=== PATIENT | female | born 1985 | race Caucasian/White ===

== ENCOUNTER 2017-07-23 22:53 | Inpatient (IN) | payer OTHER ==
[2017-07-24] MEDS ORDERED: Water For Irrigation,Sterile 1,000 ML Container IRR PRN
[2017-07-24] MEDS ORDERED: Lactated Ringers 1,000 ML IV SCH
[2017-07-24] MEDS ORDERED: Carboprost Tromethamine 250 MCG/1 ML Amp IM PRN
[2017-07-24] MEDS ORDERED: Butorphanol 1 MG/ML SDV IVPUSH PRN
[2017-07-24] MEDS ORDERED: Sodium Chloride 0.9% 10 ML Syringe FLUSH PRN
[2017-07-24] MEDS ORDERED: Misoprostol 200 MCG Tab PO PRN
[2017-07-24] MEDS ORDERED: Nalbuphine 10 MG/1 ML Vial IVPUSH PRN
[2017-07-24] MEDS ORDERED: Oxytocin/0.9 % Sodium Chloride 30 UNIT/500 ML BAG IV SCH
[2017-07-24] MEDS ORDERED: Sodium Chloride 0.9% 2.5 ML Syringe FLUSH PRN
[2017-07-24] MEDS ORDERED: Lidocaine 1% 50 ML MDV INJECT PRN
--- NOTE | 2017-07-24 00:04 | PCM.PREANE ---
Preanesthetic Assessment - Anesthesia/Transfusion/Family Hx Anesthesia History: Prior Anesthesia Without Reaction Transfusion History: No Prior Transfusion(s) - Review of Systems General: No Symptoms Pulmonary: No Symptoms Cardiovascular: No Symptoms Gastrointestinal: No Symptoms Neurological: No Symptoms Other: Reports: None - Physical Assessment Height: 5 ft 4 in Weight: 74.389 kg ASA Class: 2 Mental Status: Alert & Oriented x3 Airway Class: Mallampati = 2 Dentition: Reports: Normal Dentition Thyro-Mental Finger Breadths: 2 Mouth Opening Finger Breadths: 2 ROM/Head Extension: Full Lungs: Clear to Auscultation Cardiovascular: Regular Rate, Regular Rhythm - Allergies Allergies/Adverse Reactions: Allergies Allergy/AdvReac Type Severity Reaction Status Date / Time No Known Allergies Allergy Verified 07/12/16 18:23 - Acknowledgements Anesthesia Type Planned: Epidural Pt an Appropriate Candidate for the Planned Anesthesia: Yes Alternatives and Risks of Anesthesia Discussed w Pt/Guardian: Yes Pt/Guardian Understands and Agrees with Anesthesia Plan: Yes PreAnesthesia Questionnaire HEENT History: Reports: None Cardiovascular History: Reports: None Respiratory History: Reports: None Gastrointestinal History: Reports: GERD Genitourinary History: Reports: None [employer] History: Reports: : 2 Para: 1 LMP (Approximate): Musculoskeletal History: Reports: None Neurological History: Reports: None Psychiatric History: Reports: Depression Endocrine/Metabolic History: Reports: None Hematologic History: Reports: None Immunologic History: Reports: None Oncologic (Cancer) History: Reports: None Dermatologic History: Reports: None - Infectious Disease History Infectious Disease History: Reports: Chicken Pox - Past Surgical History HEENT Surgical History: Reports: Oral Surgery (wisdom teeth extraction) Dermatological Surgical History: Reports: Plastic Surgical Reconstruction/ Repair (Bilateral breast implants) - SUBSTANCE USE Smoking Status *Q: Never Smoker Recreational Drug Use History: No
[2017-07-24] MEDS ORDERED: Ropivacaine HCl/PF 100 ML ONE (00:10)
[2017-07-24] MEDS ORDERED: fentaNYL 100 MCG/2 ML SDV ONE (00:10)
[2017-07-24] MEDS ORDERED: Oxytocin/Normal Saline 30 UNIT/500 ML BAG ONE (03:18)
[2017-07-24] MEDS ORDERED: Methylergonovine 0.2 MG/1 ML Amp IM PRN ×2 (04:08)
[2017-07-24] MEDS ORDERED: Bisacodyl 10 MG Supp RECTAL PRN (04:08)
[2017-07-24] MEDS ORDERED: Docusate Sodium 100 MG Cap PO PRN (04:08)
[2017-07-24] MEDS ORDERED: Lanolin 100% Cream 7 GM Tube TOP PRN (04:08)
[2017-07-24] MEDS ORDERED: Witch Hazel Medicated Pads 40/Jar TOP PRN (04:08)
[2017-07-24] MEDS ORDERED: Benzocaine/Menthol 20%-0.5% Spray 78 GM Cannister TOP PRN (04:08)
--- NOTE | 2017-07-24 05:00 | OR ---
SURGEON: Tejal Fernandes M.D. DATE OF PROCEDURE: 07/24/2017 PREOPERATIVE DIAGNOSES: A 38 and 6/7th week intrauterine , active spontaneous labor. POSTOPERATIVE DIAGNOSES: A 38 and 6/7th week intrauterine , active spontaneous labor. PROCEDURE: Term spontaneous vaginal delivery with repair of secondary laceration. ANESTHESIA: Epidural. ESTIMATED BLOOD LOSS: Less than 300 mL. FINDINGS: Live-born male, scores 8 and 9, weighing 3650 g. Second-degree perineal laceration repaired. Placenta spontaneous. Saleh intact with 3 vessels. BRIEF HISTORY: This is a 32-year-old female, G2, P1-0-0-1. She presents at 38 and 6/7th weeks' gestation in active spontaneous labor. She was initially 5-6 cm dilated. After epidural was placed, she was 8 cm dilated. She had category 1 heart tones. She progressed to 9+ cm at which time, artificial rupture of membranes was performed. Clear fluid was noted and she progressed to complete. DESCRIPTION OF PROCEDURE: With the patient in dorsal lithotomy position, the patient pushed over an 8- minute time period to a 5+ station, at which time the head was delivered spontaneously and atraumatically over the perineum with support with subsequent delivery of the 's shoulders and body without any difficulty. The was bulb suctioned by nose and mouth. The cord was clamped x2 and cut and the was handed to the mother in the presence of the nurse attending delivery. The was a liveborn male, scores were 8 and 9, weighing 3650 g. Cord blood had been collected for cord ABGs as well as routine cord blood sampling. Pitocin was initiated after delivery of the to assist with delivery of the placenta, which was delivered spontaneously. Saleh intact with 3 vessels. Upon inspection of the pelvis and perineum, there were no periurethral, vaginal sidewall, cervical, or rectal lacerations. There was a second-degree perineal laceration, which was repaired with a running lock suture of 2-0 Caprosyn for the vaginal mucosa. A deep running suture of the same for the deep perineal tissue and a subcuticular suture of the same for the skin. Final sponge, needle, and instrument counts were reported as correct. There were no known complications. The mother and baby are in LDRP in good condition. TORSTEN / EMORY /[id number]
[2017-07-24] MEDS: Ibuprofen 800 MG Tab PO PRN ×2 (08:17→17:03)
[2017-07-24] MEDS: oxyCODONE 5 MG Tab PO PRN ×3 (08:18→17:04)
--- NOTE | 2017-07-24 09:12 | PCM48HPAN ---
Post Anesthesia Note - EVALUATION WITHIN 48HRS OF ANESTHETIC Vital Signs in Normal Range: Yes Patient Participated in Evaluation: Yes Respiratory Function Stable: Yes Airway Patent: Yes Cardiovascular Function Stable: Yes Hydration Status Stable: Yes Pain Control Satisfactory: Yes Nausea and Vomiting Control Satisfactory: Yes Mental Status Recovered: Yes
[2017-07-24] MEDS: Acetaminophen 500 MG Tab PO PRN ×2 (12:30→20:31)
[2017-07-25] MEDS: Ibuprofen 800 MG Tab PO PRN (00:30)
[2017-07-25] MEDS: Acetaminophen 500 MG Tab PO PRN (05:01)
[2017-07-25] MEDS: oxyCODONE 5 MG Tab PO PRN (05:02)
--- NOTE | 2017-07-25 08:22 | PCM.PNPP ---
<Marisa Martinez - Last Filed: 07/25/17 08:20> - General Info Date of Service: 07/25/17 Functional Status: Reports: Pain Controlled, Tolerating Diet, Ambulating, Urinating - Review of Systems General: Denies: Fever, Weakness, Fatigue Pulmonary: Denies: Shortness of Breath, Pleuritic Chest Pain, Cough Cardiovascular: Denies: Chest Pain, Palpitations, Dyspnea on Exertion Gastrointestinal: Denies: Abdominal Pain Genitourinary: Denies: Dysuria Psychiatric: Reports: No Symptoms - General Info Date of Service: 07/25/17 - Patient Data Vital Signs - Most Recent: Last Vital Signs Temp 36.2 C 07/25/17 04:50 Pulse 82 07/25/17 04:50 Resp 18 07/25/17 04:50 BP 110/61 07/25/17 04:50 Pulse Ox 99 07/25/17 04:50 Weight - Most Recent: 74.389 kg Lab Results - Last 24 Hours: Laboratory Results - last 24 hr 07/25/17 Range/Units 05:47 Hgb 10.5 L (12.0-16.0) g/dL Hct 32.6 L (36.0-46.0) % Med Orders - Current: Current Medications Acetaminophen (Tylenol Extra Strength) 1,000 mg PO Q4H PRN PRN Reason: Pain Last Admin: 07/25/17 05:01 Dose: 1,000 mg Benzocaine/Menthol (Dermoplast Pain Relief 20%-0.5% [place]) 78 gm TOP ASDIRECTED PRN PRN Reason: Perineal Comfort Measure Last Admin: 07/24/17 08:18 Dose: 1 canister Bisacodyl (Dulcolax) 10 mg RECTAL .ONCE PRN PRN Reason: Constipation Docusate Sodium (Colace) 100 mg PO BID PRN PRN Reason: Constipation Emollient Ointment (Lansinoh Hpa) 0 gm TOP ASDIRECTED PRN PRN Reason: Sore Nipples Last Admin: 07/24/17 17:04 Dose: 1 applic Ibuprofen (Motrin) 800 mg PO Q6H PRN PRN Reason: Pain Last Admin: 07/25/17 00:30 Dose: 800 mg Methylergonovine Maleate (Methergine) 0.2 mg IM .ONCE PRN PRN Reason: Excessive Vaginal Bleeding Oxycodone HCl (Oxycodone) 5 mg PO Q2H PRN PRN Reason: Pain Last Admin: 07/25/17 05:02 Dose: 5 mg Witch Sienna (Tucks) 1 pad TOP ASDIRECTED PRN PRN Reason: comfort care Last Admin: 07/24/17 08:19 Dose: 1 tub Discontinued Medications Butorphanol Tartrate (Stadol) 1 mg IVPUSH Q1H PRN PRN Reason: Pain Carboprost Tromethamine (Hemabate Ds) 250 mcg IM ASDIRECTED PRN PRN Reason: Post Hemorrhage Fentanyl (Sublimaze) Confirm Administered Dose 100 mcg .ROUTE .STK-MED ONE Stop: 07/24/17 00:11 Lactated Ringer's (Ringers, Lactated) 1,000 mls @ 150 mls/hr IV ASDIRECTED ERNIE Oxytocin/Sodium Chloride (Oxytocin 30 Unit/500 Ml-Ns) 30 unit in 500 mls @ 999 mls/hr IV TITRATE ERNIE Last Admin: 07/24/17 03:29 Dose: 999 mls/hr Ropivacaine (Naropin 0.2%) Confirm Administered Dose 100 mls @ as directed .ROUTE .STK-MED ONE Stop: 07/24/17 00:11 Oxytocin/Sodium Chloride (Pitocin In Ns 30 Unit/500 Ml) Confirm Administered Dose 30 unit in 500 mls @ as directed .ROUTE .STK-MED ONE Stop: 07/24/17 03:19 Lidocaine HCl (Xylocaine 1%) 50 ml INJECT .ONCE PRN PRN Reason: Laceration repair Methylergonovine Maleate (Methergine) 0.2 mg IM ASDIRECTED PRN PRN Reason: Post Hemorrhage Misoprostol (Cytotec) 200 mcg PO .ONCE PRN PRN Reason: Post Hemorrhage Nalbuphine HCl (Nubain) 10 mg IVPUSH Q1H PRN PRN Reason: Pain (severe 7-10) Sodium Chloride (Saline Flush) 10 ml FLUSH ASDIRECTED PRN PRN Reason: Keep Vein Open Sodium Chloride (Saline Flush) 2.5 ml FLUSH ASDIRECTED PRN PRN Reason: Keep Vein Open Sterile Water (Sterile Water For Irrigation) 1,000 ml IRR ASDIRECTED PRN PRN Reason: delivery Last Admin: 07/24/17 04:11 Dose: 1,000 ml - Interaction Disposition, : [place] in Room with Family Feeding: Breastfed Infant; Nursed Well Support Person: - Recovery Exam Fundal Tone: Firm Fundal Level: 1 Fingerbreadths Below Umbilicus Fundal Placement: Midline Lochia Amount: Scant Lochia Color: Rubra/Red Perineum Description: Edematous Episiotomy/Laceration: Approximated Bladder Status: Voiding Urinary Elimination: Voided - Exam General: Alert, Oriented Lungs: Clear to Auscultation, Normal Respiratory Effort Cardiovascular: Regular Rate, Regular Rhythm GI/Abdominal Exam: Normal Bowel Sounds, Soft, Non-Tender, No Organomegaly, No Distention, No Abnormal Bruit, No Mass, Pelvis Stable Extremities: Normal Inspection, Normal Range of Motion, Non-Tender, No Pedal Edema, Normal Capillary Refill Psy/Mental Status: Alert, Normal Affect, Normal Mood - Problem List & Annotations (1) Vaginal delivery SNOMED Code(s): 477071837 Code(s): O80 - ENCOUNTER FOR FULL-TERM UNCOMPLICATED DELIVERY Status: Acute Current Visit: No - Problem List Review Problem List Initiated/Reviewed/Updated: Yes - Assessment Assessment:: PPD #1 from . Minimal pain and lochia. Breast feeding well. Discharge home today. - Plan Plan:: Discharge home today. Nothing in the vagina for 6 weeks. Continue PNV while breast feeding. Can use OTC ibuprofen/tylenol as needed for pain. Instructed patient to call if she develops fever greater than 101 or bleeding through a large pad an hour. F/U with [facility] in 6 weeks. <Teodora Lynn - Last Filed: 07/25/17 09:27> - Patient Data Vital Signs - Most Recent: Last Vital Signs Temp 36.2 C 07/25/17 04:50 Pulse 82 07/25/17 04:50 Resp 18 07/25/17 04:50 BP 110/61 07/25/17 04:50 Pulse Ox 99 07/25/17 04:50 Lab Results - Last 24 Hours: Laboratory Results - last 24 hr 07/25/17 Range/Units 05:47 Hgb 10.5 L (12.0-16.0) g/dL Hct 32.6 L (36.0-46.0) % Med Orders - Current: Current Medications Acetaminophen (Tylenol Extra Strength) 1,000 mg PO Q4H PRN PRN Reason: Pain Last Admin: 07/25/17 05:01 Dose: 1,000 mg Benzocaine/Menthol (Dermoplast Pain Relief 20%-0.5% [place]) 78 gm TOP ASDIRECTED PRN PRN Reason: Perineal Comfort Measure Last Admin: 07/24/17 08:18 Dose: 1 canister Bisacodyl (Dulcolax) 10 mg RECTAL .ONCE PRN PRN Reason: Constipation Docusate Sodium (Colace) 100 mg PO BID PRN PRN Reason: Constipation Emollient Ointment (Lansinoh Hpa) 0 gm TOP ASDIRECTED PRN PRN Reason: Sore Nipples Last Admin: 07/24/17 17:04 Dose: 1 applic Ibuprofen (Motrin) 800 mg PO Q6H PRN PRN Reason: Pain Last Admin: 07/25/17 00:30 Dose: 800 mg Methylergonovine Maleate (Methergine) 0.2 mg IM .ONCE PRN PRN Reason: Excessive Vaginal Bleeding Oxycodone HCl (Oxycodone) 5 mg PO Q2H PRN PRN Reason: Pain Last Admin: 07/25/17 05:02 Dose: 5 mg Witch Sienna (Tucks) 1 pad TOP ASDIRECTED PRN PRN Reason: comfort care Last Admin: 07/24/17 08:19 Dose: 1 tub Discontinued Medications Butorphanol Tartrate (Stadol) 1 mg IVPUSH Q1H PRN PRN Reason: Pain Carboprost Tromethamine (Hemabate Ds) 250 mcg IM ASDIRECTED PRN PRN Reason: Post Hemorrhage Fentanyl (Sublimaze) Confirm Administered Dose 100 mcg .ROUTE .STK-MED ONE Stop: 07/24/17 00:11 Lactated Ringer's (Ringers, Lactated) 1,000 mls @ 150 mls/hr IV ASDIRECTED ERNIE Oxytocin/Sodium Chloride (Oxytocin 30 Unit/500 Ml-Ns) 30 unit in 500 mls @ 999 mls/hr IV TITRATE ERNIE Last Admin: 07/24/17 03:29 Dose: 999 mls/hr Ropivacaine (Naropin 0.2%) Confirm Administered Dose 100 mls @ as directed .ROUTE .STK-MED ONE Stop: 07/24/17 00:11 Oxytocin/Sodium Chloride (Pitocin In Ns 30 Unit/500 Ml) Confirm Administered Dose 30 unit in 500 mls @ as directed .ROUTE .STK-MED ONE Stop: 07/24/17 03:19 Lidocaine HCl (Xylocaine 1%) 50 ml INJECT .ONCE PRN PRN Reason: Laceration repair Methylergonovine Maleate (Methergine) 0.2 mg IM ASDIRECTED PRN PRN Reason: Post Hemorrhage Misoprostol (Cytotec) 200 mcg PO .ONCE PRN PRN Reason: Post Hemorrhage Nalbuphine HCl (Nubain) 10 mg IVPUSH Q1H PRN PRN Reason: Pain (severe 7-10) Sodium Chloride (Saline Flush) 10 ml FLUSH ASDIRECTED PRN PRN Reason: Keep Vein Open Sodium Chloride (Saline Flush) 2.5 ml FLUSH ASDIRECTED PRN PRN Reason: Keep Vein Open Sterile Water (Sterile Water For Irrigation) 1,000 ml IRR ASDIRECTED PRN PRN Reason: delivery Last Admin: 07/24/17 04:11 Dose: 1,000 ml - Problem List Review Problem List Initiated/Reviewed/Updated: Yes - Plan Plan:: Patient seen and examined-agree with above note. Patient will also resume her sertraline 100 mg daily. PP depression warnings reviewed.
[2017-07-25 10:13] VITALS: BP 115/66
== END 2017-07-25 11:15 | disposition home or self-care (01) | DRG 775 ==
LOC: MW.OBCHECK 22:53 → MW.OB 22:54 → MW.OBCHECK 07-24 → MW.OB 07-24 → OBSVTOIN 07-24 03:29
PROVIDERS: ADMIT Obstetrics & Gynecology; ATTEND Obstetrics & Gynecology
PROC: 10E0XZZ Delivery of Products of Conception, External Approach (ICD-10-PCS; principal; 2017-07-24)
PROC: 0KQM0ZZ Repair Perineum Muscle, Open Approach (ICD-10-PCS; 2017-07-24)
PROC: 10907ZC Drainage of Amniotic Fluid, Therapeutic from Products of Conception, Via Natural or Artificial Opening (ICD-10-PCS; 2017-07-24)
DX: O70.1 Second degree perineal laceration during delivery (principal); Z37.0 Single live birth; Z3A.38 38 weeks gestation of pregnancy
CPT/HCPCS: 01967; 36415; 59025; 59409; 85014; 85018; 85027; 86850; 86900; 86901; A9270-GY; J2590; J2795; J3010